=== PATIENT | male | born 1980 | race Caucasian/White ===

== ENCOUNTER 2022-12-07 16:15 | Emergency (ER) | payer SELFPAY ==
[2022-12-07] MEDS ORDERED: Lidocaine 1% 5 ML VIAL ONE (16:19)
[2022-12-07 16:29] VITALS: BP 134/83; PULSE 75
[2022-12-07] MEDS ORDERED: Lidocaine 1% 5 ML VIAL INJECT ONE (16:34)
[2022-12-07] MEDS ORDERED: Bacitracin/Neomycin/Polymyxin B Oint 0.9 GM U/D Packet ONE (17:03)
== END 2022-12-07 17:25 | disposition home or self-care (01) ==
LOC: KA.ED 16:15
DX: S61.214A Laceration without foreign body of right ring finger without damage to nail, initial encounter (principal); S61.212A Laceration without foreign body of right middle finger without damage to nail, initial encounter; S61.216A Laceration without foreign body of right little finger without damage to nail, initial encounter; Z88.0 Allergy status to penicillin; W26.8XXA Contact with other sharp object(s), not elsewhere classified, initial encounter
CPT/HCPCS: 12001; 12002; 99282; 99283; J3490